=== PATIENT | female | born 1985 | race Asian ===

== ENCOUNTER 2021-09-02 09:15 | Observation (INO) | payer MEDICAID ==
[2021-09-02] MEDS ORDERED: PREN-129 OR (09:58)
== END 2021-09-02 11:05 | disposition home or self-care (01) ==
LOC: LDRP 09:15
PROVIDERS: ADMIT Obstetrics & Gynecology; ATTEND Obstetrics & Gynecology
DX: O24.419 Gestational diabetes mellitus in pregnancy, unspecified control (principal); Z3A.32 32 weeks gestation of pregnancy; Z87.891 Personal history of nicotine dependence
CPT/HCPCS: 59025; 82948; 82962; 94760; G0378

== ENCOUNTER 2021-09-09 07:29 | Observation (INO) | payer MEDICAID ==
[~2021-09-09 07:29] MED LIST: PREN-129 OR
[2021-10-22] MEDS ORDERED: HYDR-4902 PO (14:17)
[2021-10-22] MEDS ORDERED: DOCU-94 PO (14:17)
[2021-10-22] MEDS ORDERED: IBUP800T27 PO (14:17)
== END 2021-10-21 12:11 | disposition home or self-care (01) ==
LOC: UNDOADMOB 10-21 09:43 → LDRP 10-21 09:43 → UNDODISOB 10-21 12:11
PROVIDERS: ADMIT Obstetrics & Gynecology; ATTEND Obstetrics & Gynecology
DX: O24.419 Gestational diabetes mellitus in pregnancy, unspecified control (principal); O26.893 Other specified pregnancy related conditions, third trimester; N89.8 Other specified noninflammatory disorders of vagina; Z3A.39 39 weeks gestation of pregnancy; Z98.891 History of uterine scar from previous surgery
CPT/HCPCS: 59025; 76818; 82962; 94760; G0378

== ENCOUNTER → 2021-10-07 | Outpatient (CLI) | payer MEDICAID ==
[2021-10-07 11:49] LABS: Basophils # (auto) 0 10 ^3/uL (0-0.2); Basophils % (auto) 0.3 % (0.0-2.0); Eosinophils # (auto) 0 10 ^3/uL (0-0.8); Eosinophils % (auto) 0.4 % (0.0-7.0); Hematocrit 37.9 % (36.0-46.0); Hemoglobin 13.5 g/dL (12.2-16.2); Lymphocytes # (auto) 1.1 10 ^3/uL (0.4-5.4); Lymphocytes % (auto) 14.7 % (10.0-50.0); Mean Corpuscular Hemoglobin 33.4 pg (28.0-32.0); Mean Corpuscular Hgb Conc. 35.6 g/dL (32.0-36.0); Mean Corpuscular Volume 93.9 fL (80.0-100.0); Monocytes # (auto) 0.5 10 ^3/uL (0-1.3); Monocytes % (auto) 6.7 % (0.0-12.0); Neutrophils # (auto) 5.9 10 ^3/uL (1.6-8.6); Neutrophils % (auto) 77.9 % (37.0-80.0); Red Blood Cells 4.03 10^6/uL (4.0-5.20); Red Cell Distribution Width 12.8 % (11.8-14.3); White Blood Cell 7.5 10^3/uL (4.4-10.8)
[2021-10-07 13:09] LABS: Alcohol, Urine < 3.0 mg/dL (0-10); Amphetamine Screen, Urine NEGATIVE (NEGATIVE); Barbiturate Scree,Urine NEGATIVE (NEGATIVE); Benzodiazephine Screen, Urine NEGATIVE (NEGATIVE); Cannabinoid Screen, Urine NEGATIVE (NEGATIVE); Cocaine Screen, Urine NEGATIVE (NEGATIVE); Opiate Scree,Urine NEGATIVE (NEGATIVE); Phencyclidine Screen, Urine NEGATIVE (NEGATIVE)
[2021-10-08 07:06] LABS: RPR Non Reactive (Non Reactive)
== END | disposition home or self-care (01) ==
LOC: LAB 10:45
PROVIDERS: ATTEND Obstetrics & Gynecology
DX: Z34.80 Encounter for supervision of other normal pregnancy, unspecified trimester (principal)
CPT/HCPCS: 36415; 80307; 84112; 85025; 86592

== ENCOUNTER 2021-10-22 08:04 | Inpatient (IN) | payer MEDICAID ==
[2021-10-21 10:38] LABS: Basophils # (auto) 0.1 10 ^3/uL (0-0.2); Basophils % (auto) 1.3 % (0.0-2.0); Eosinophils # (auto) 0 10 ^3/uL (0-0.8); Eosinophils % (auto) 0.6 % (0.0-7.0); Hematocrit 38.8 % (36.0-46.0); Hemoglobin 13.7 g/dL (12.2-16.2); Lymphocytes # (auto) 1.4 10 ^3/uL (0.4-5.4); Lymphocytes % (auto) 17.2 % (10.0-50.0); Mean Corpuscular Hemoglobin 33.1 pg (28.0-32.0); Mean Corpuscular Hgb Conc. 35.4 g/dL (32.0-36.0); Mean Corpuscular Volume 93.5 fL (80.0-100.0); Monocytes # (auto) 0.6 10 ^3/uL (0-1.3); Monocytes % (auto) 7.3 % (0.0-12.0); Neutrophils % (auto) 73.6 % (37.0-80.0); Nucleated Red Blood Cells % 0.3 %; Red Blood Cells 4.15 10^6/uL (4.0-5.20); Red Cell Distribution Width 12.8 % (11.8-14.3); White Blood Cell 8.1 10^3/uL (4.4-10.8)
[2021-10-21 10:52] LABS: INR 0.93 (0.9-1.15); Partial Thromboplastin Time 26.4 sec (23.6-33.0)
[2021-10-21 10:52] LABS: Urine Bacteria FEW /hpf (None Seen); Urine Blood Negative /uL (Negative); Urine Hyaline Cast FEW /lpf (0 - 2); Urine Specific Gravity 1.004 (1.001-1.035); Urine WBC 6 /hpf (0 - 5)
[2021-10-21 10:57] LABS: Albumin 3.2 g/dL (3.4-5.0); Potassium 3.8 mmol/L (3.5-5.1)
[2021-10-21 11:00] LABS: Bilirubin, Total 0.7 mg/dL (0.2-1.0); Total Protein 7.5 g/dL (6.4-8.2)
[2021-10-21 11:04] LABS: Alcohol, Urine < 3.0 mg/dL (0-10); Amphetamine Screen, Urine NEGATIVE (NEGATIVE); Barbiturate Scree,Urine NEGATIVE (NEGATIVE); Benzodiazephine Screen, Urine NEGATIVE (NEGATIVE); Cannabinoid Screen, Urine NEGATIVE (NEGATIVE); Cocaine Screen, Urine NEGATIVE (NEGATIVE); Opiate Scree,Urine NEGATIVE (NEGATIVE); Phencyclidine Screen, Urine NEGATIVE (NEGATIVE)
[~2021-10-22] VITALS: Ht 152.4 cm; Wt 56.7 kg
[2021-10-22 07:06] LABS: RPR Non Reactive (Non Reactive)
[2021-10-22] MEDS ORDERED: ceFAZolin 1GM/50ML 50 ML IV ONE (08:30)
[2021-10-22] MEDS ORDERED: LACTATED RINGER'S 1,000 ML IV ONE (08:30)
[2021-10-22] MEDS ORDERED: TERBUTALINE SULFATE 1 MG/ML 1ML VIAL SC SCH (10:00)
[2021-10-22] MEDS: LACTATED RINGER'S 1,000 ML IV SCH ×2 (10:00→21:25)
[2021-10-22] MEDS ORDERED: SODIUM CITR/CITRIC ACID ORAL SOLN 30 ML PO SCH (12:35)
[2021-10-22] MEDS ORDERED: TETRACAINE 1% INJ 2 ML VIAL IJ ONE (12:42)
[2021-10-22] MEDS ORDERED: MORPHINE SULF PF 5 MG/10 ML VIAL ONE (12:43)
[2021-10-22] MEDS: SODIUM CITR/CITRIC ACID ORAL SOLN 30 ML PO SCH ×2 (12:57→18:00)
[2021-10-22] MEDS ORDERED: EPINEPHrine HCL 1 MG/1 ML AMP ONE (13:04)
[2021-10-22] MEDS ORDERED: ePHEDrine SULFATE 50 MG/ML AMP ONE (13:04)
[2021-10-22] MEDS ORDERED: LACT. RINGERS/OXYTOCIN 20UNITS 1,000 ML IV ONE (13:30)
[2021-10-22] MEDS ORDERED: ONDANSETRON HCL 4 MG/2 ML VIAL IV PRN (13:30)
[2021-10-22] MEDS: ceFAZolin 1GM/50ML 50 ML IV SCH ×2 (13:30→21:34)
[2021-10-22] MEDS ORDERED: HYDR-4902 PO (14:17)
[2021-10-22] MEDS ORDERED: IBUP800T27 PO (14:17)
[2021-10-22] MEDS ORDERED: DOCU-94 PO (14:17)
[2021-10-22] MEDS ORDERED: oxyTOCIN 10 UNIT/ML 10ML VIAL ONE (14:20)
[2021-10-22 18:30] VITALS: BP 109/62
[2021-10-22] MEDS ORDERED: ACETAMINOPHEN IV 1000 MG/100ML (10MG/ML) IV ONE (18:30)
[2021-10-22 19:30] VITALS: BP 107/61
[2021-10-22 20:30] VITALS: BP 110/65
[2021-10-22 21:30] VITALS: BP 97/55
[2021-10-22 22:30] VITALS: BP 113/58
[2021-10-22 22:57] LABS: Basophils # (auto) 0.1 10 ^3/uL (0-0.2); Basophils % (auto) 0.9 % (0.0-2.0); Eosinophils # (auto) 0 10 ^3/uL (0-0.8); Eosinophils % (auto) 0.1 % (0.0-7.0); Hematocrit 36.7 % (36.0-46.0); Hemoglobin 12.9 g/dL (12.2-16.2); Lymphocytes # (auto) 1.1 10 ^3/uL (0.4-5.4); Lymphocytes % (auto) 7.8 % (10.0-50.0); Mean Corpuscular Hemoglobin 32.9 pg (28.0-32.0); Mean Corpuscular Hgb Conc. 35.2 g/dL (32.0-36.0); Mean Corpuscular Volume 93.2 fL (80.0-100.0); Monocytes # (auto) 0.9 10 ^3/uL (0-1.3); Monocytes % (auto) 6.3 % (0.0-12.0); Neutrophils # (auto) 12.2 10 ^3/uL (1.6-8.6); Neutrophils % (auto) 84.9 % (37.0-80.0); Nucleated Red Blood Cells % 0.7 %; Red Blood Cells 3.93 10^6/uL (4.0-5.20); Red Cell Distribution Width 12.8 % (11.8-14.3); White Blood Cell 14.3 10^3/uL (4.4-10.8)
[2021-10-22] MEDS ORDERED: GUM (CHEWING) 1 GUM CHEW CHEW ONE (23:00)
[2021-10-22 23:30] VITALS: BP 107/56
[2021-10-23] VITALS (15 sets, daily range): BP systolic 96–113; BP diastolic 55–71
[2021-10-23] MEDS: ceFAZolin 1GM/50ML 50 ML IV SCH (05:14)
[2021-10-23] MEDS: LACTATED RINGER'S 1,000 ML IV SCH (05:24)
[2021-10-23 06:34] LABS: Basophils # (auto) 0.1 10 ^3/uL (0-0.2); Basophils % (auto) 0.6 % (0.0-2.0); Eosinophils # (auto) 0 10 ^3/uL (0-0.8); Eosinophils % (auto) 0.2 % (0.0-7.0); Hematocrit 34.9 % (36.0-46.0); Hemoglobin 12.6 g/dL (12.2-16.2); Lymphocytes # (auto) 1.2 10 ^3/uL (0.4-5.4); Lymphocytes % (auto) 8.6 % (10.0-50.0); Mean Corpuscular Hemoglobin 33.5 pg (28.0-32.0); Mean Corpuscular Volume 93.2 fL (80.0-100.0); Monocytes # (auto) 0.8 10 ^3/uL (0-1.3); Monocytes % (auto) 6.1 % (0.0-12.0); Neutrophils # (auto) 11.5 10 ^3/uL (1.6-8.6); Neutrophils % (auto) 84.5 % (37.0-80.0); Nucleated Red Blood Cells % 0.3 %; Red Blood Cells 3.75 10^6/uL (4.0-5.20); Red Cell Distribution Width 12.8 % (11.8-14.3); White Blood Cell 13.6 10^3/uL (4.4-10.8)
[2021-10-23] MEDS: SODIUM CITR/CITRIC ACID ORAL SOLN 30 ML PO SCH (08:22)
[2021-10-23] MEDS ORDERED: BISACODYL 10 MG RECT SUPP PR PRN (10:30)
[2021-10-23] MEDS: SIMETHICONE 80 MG CHEWABLE TABLET PO SCH ×3 (12:00→22:14)
[2021-10-23] MEDS: HYDROcodone-ACET 5/325MG TAB PO PRN ×2 (12:28→18:07)
[2021-10-23] MEDS: DOCUSATE SOD 100 MG CAP PO SCH (22:14)
[2021-10-24] MEDS: HYDROcodone-ACET 5/325MG TAB PO PRN ×3 (00:31→22:08)
[2021-10-24 02:56] VITALS: BP 111/73
[2021-10-24] MEDS ORDERED: TETANUS-DIPTH-ACEL PERTUSSIS 0.5ML SYR Tdap IM ONE (04:00)
[2021-10-24] MEDS: IBUPROFEN 800 MG TAB PO PRN (04:05)
[2021-10-24] MEDS: SIMETHICONE 80 MG CHEWABLE TABLET PO SCH ×4 (06:28→22:07)
[2021-10-24 07:30] VITALS: BP 117/61
[2021-10-24] MEDS: DOCUSATE CALCIUM 240 MG CAP PO SCH (09:50)
[2021-10-24] MEDS: DOCUSATE SOD 100 MG CAP PO SCH ×2 (09:50→22:03)
[2021-10-24 11:05] VITALS: BP 102/61
[2021-10-24 14:37] VITALS: BP 101/56
[2021-10-24 19:10] VITALS: BP 111/59
[2021-10-24 23:15] VITALS: BP 105/58
[2021-10-25 03:00] VITALS: BP 103/60
[2021-10-25] MEDS: IBUPROFEN 800 MG TAB PO PRN (05:30)
[2021-10-25] MEDS: SIMETHICONE 80 MG CHEWABLE TABLET PO SCH ×2 (05:30→12:00)
[2021-10-25 07:00] VITALS: BP 121/71
[2021-10-25] MEDS: DOCUSATE CALCIUM 240 MG CAP PO SCH (09:59)
[2021-10-25] MEDS: DOCUSATE SOD 100 MG CAP PO SCH (09:59)
[2021-10-25 10:42] VITALS: BP 123/77
== END 2021-10-25 13:20 | disposition home or self-care (01) | DRG 540 ==
LOC: LDRP 08:04
PROVIDERS: ADMIT Obstetrics & Gynecology; ATTEND Obstetrics & Gynecology
PROC: 10D00Z1 Extraction of Products of Conception, Low, Open Approach (ICD-10-PCS; principal; 2021-10-22 13:05)
DX: O24.429 Gestational diabetes mellitus in childbirth, unspecified control (principal); O99.214 Obesity complicating childbirth; K66.0 Peritoneal adhesions (postprocedural) (postinfection); O34.211 Maternal care for low transverse scar from previous cesarean delivery; O99.62 Diseases of the digestive system complicating childbirth; Z20.822 Contact with and (suspected) exposure to COVID-19; Z37.0 Single live birth; Z3A.39 39 weeks gestation of pregnancy
CPT/HCPCS: 36415; 59025; 80053; 80307; 81001; 81002; 82948; 82962; 85025; 85610; 85730; 86592; 86850; 86900; 86901; 90715; 94760; 94762; 96360; 96361; 96365; 96366; 96372; G0378; J0131; J0171; J0690; J2405; J2590